=== PATIENT | female | born 1985 | race Caucasian/White ===

== ENCOUNTER 2022-04-16 22:42 | Inpatient (IN) | payer SELFPAY ==
[2022-04-16 22:51] VITALS: BP 133/77; PULSE 108; RESP 20; TEMP 37.2; O2SAT 100; BMI 28.2
--- NOTE | 2022-04-16 23:35 | W.ED.EXTPRO ---
HPI - Extremity Problem General: Chief complaint: ER Hold Stated complaint: Rt Arm Swollen Time Seen by Provider: 04/16/22 23:35 History of Present Illness: Ms. Erickson is a 36-year-old lady without significant past medical history presents to the emergency department due to concern over increased arm swelling. She reports she was working on a roof last week and may have cyst and a right elbow laceration. She was doing well for few days and then had increased pain and redness that has spread. She was seen 2 days ago at outside ER and given a dose of Rocephin as well as prescribed Bactrim in the outpatient setting. Additionally she had Tdap updated. Despite this symptoms have continued to worsen. She has moderate to severe intensity pain which is throbbing in nature and tracks distally. Symptoms are worse with movement and palpation. She has noted subjective chills and nausea with vomiting though she thinks that this may be secondary to pain medication. Denies frequent episode of skin infections. No other specific changes in health, exacerbating, or alleviating factors identified. Onset (ago): day(s) Location: right Quality: aching Radiation: proximal and distal Exacerbating factors: range of motion and palpation Associated symptoms: Reports other Review of Systems General: Reports: 10 or more systems reviewed and unremarkable except in HPI and below PFSH ED PFSH: Medical History No significant past medical history Surgical History H/O: hysterectomy Family History Other No significant family history Social History Smoking and tobacco status: current some day smoker cigarettes Alcohol intake: never Lives independently: Yes Household members: spouse Marital status: Physical Exam Const: COMMON NORMALS: alert GENERAL APPEARANCE: cooperative, well developed and in distress (uncomfortable appearing due to pain) HENMT: COMMON NORMALS: normocephalic and atraumatic HEAD & SCALP: normocephalic and atraumatic THROAT: posterior oropharynx normal Eye: COMMON NORMALS: conjunctivae normal CONJUNCTIVA: Yes conjunctivae normal SCLERA: sclerae normal Neck/C-Spine: COMMON NORMALS: supple GENERAL: Yes trachea midline Resp: COMMON NORMALS: normal respiratory effort and clear to auscultation bilaterally EFFORT & INSPECTION: Yes able to speak in complete sentences AUSCULTATION: clear to auscultation bilaterally Cardio: COMMON NORMALS: regular rate and regular rhythm RATE: regular rate RHYTHM: regular rhythm GI: COMMON NORMALS: Soft to palpation PALPATION: Yes Soft to palpation and No Tenderness to palpation present (GI) PERCUSSION: normal to percussion Extremity: NARRATIVE EXTREMITY EXAM: R arm circumferential swelling proximal and distal to elbow. TTP. Warmth. Mild erythema. No vesicles or rash. Distal CMS intact. Worse TTP to olecranon region. Neuro: COMMON NORMALS: moves all extremities SENSORIUM/ORIENTATION: Yes alert and No Orientation impaired Psych: COMMON NORMALS: mental status grossly normal and Normal thought process present THOUGHT PROCESS: Normal thought process present Procedures Abscess I/D Site: upper extremity Side (if applicable): right Local Anesthetic: lidocaine 2% and with epi Amount of anesthesia used (mL): 5 Technique: incised with #11 blade Amount of fluid expressed (mL): 10 Irrigation: Yes Packing used?: plain Complications: pain Course ED course: - Patient was seen and evaluated by me at bedside - Patient placed on cardiac monitors, IV access obtained - Initial evaluation notable for exam above - Labs and xrays personally interpreted by me - Fluids, analgesia, and antiemetic given. abx ordered - Labs notable for leukocytosis, normal hemoglobin. Mild dehydration. Transaminitis of uncertain etiology. Elevated - Imaging notable for no acute bony abnormality, extensive posterior right elbow swelling. Soft tissue ultrasound notable for fluid collection within the posterior soft tissues of the right elbow. Report states that above elbow however images demonstrate that this is in proximity to radius. Area reidentified on POCUS and appears liquid. Drained as noted in procedures - Upon serial reexamination after treatment the patient was improved - Based on patient history, evaluation, and testing as interpreted the most likely cause of the patient's condition is cellulitis from wound abscess formation that has failed outpatient therapy - The results of ED evaluation were discussed with the patient including plan for admission due to requirement for level of care not available if discharged to prevent significant worsening/deterioration. - Admitting service was contacted and Dr Halytskyy with the hospitalist service agreed to admit the patient - Patient was admitted without further deterioration or significant events. Note: Click bubbles or prepopulated cummings in note writing are used for assistance with data collection and billing and are inherently more limited than narrative and other text portions of this note. Please use narrative for additional clinical history and defer to narrative/free test for any case of contradictory information. If information appears in only free text or click bubble it should be considered present or absent as reported. Please contact note real estate underwriter for clarifications of clinical information or contradictory information. MDM is a brief summary, contradictory or erroneous seeming information should be clarified and full note should be reviewed. Vital Signs: Vital signs: Vital Signs Temperature 98.4 F 04/18/22 11:50 Pulse Rate 97 04/18/22 11:50 Respiratory Rate 18 04/18/22 11:50 Blood Pressure 95/55 04/18/22 11:50 Pulse Oximetry 99 04/18/22 11:50 Oxygen Delivery Me thod 04/18/22 04:00 MDM - Extremity (Nontraumatic) Medical Decision Making 36-year-old lady presenting with worsening arm pain and swelling after fall with injury. Previously she was started on outpatient antibiotics but continues to worsen. Labs notable for leukocytosis. Initial tachycardia noted. Abscess identified and drained with packing placed. Admitted for IV antibiotics. Medical Records I reviewed the patient's medical records. Lab Data I reviewed the patient's lab results. : 04/17/22 08:52 04/17/22 08:52 Radiology Impressions Elbow X-Ray 04/16/22 23:45 IMPRESSION: Extensive posterior right elbow soft tissue swelling. Differential diagnosis includes cellulitis versus possible olecranon bursitis. Soft Tissue Ultrasound 04/17/22 23:46 IMPRESSION: Approximately 1.1 x 2.4 x 1.6 cm heterogeneous fluid collection or abscess within the posterior soft tissues above the right elbow. Venous Duplex 04/17/22 23:46 IMPRESSION: No evidence of right upper extremity deep vein thrombosis. Laboratory Results WBC 12.6 10^3/uL (4.0-10.0) H 04/17/22 00:08 RBC 3.94 10^6/uL (4.1-5.3) L 04/17/22 00:08 Hgb 11.8 g/dL (11.5-15.3) 04/17/22 00:08 Hct 35.6 % (37.0-47.0) L 04/17/22 00:08 MCV 90.4 fl (81-99) 04/17/22 00:08 MCH 29.9 pg (28.0-34.0) 04/17/22 00:08 MCHC 33.1 g/dL (30.0-36.0) 04/17/22 00:08 RDW 12.8 % (12.1-15.1) 04/17/22 00:08 Plt Count 266 10^3/cmm (130-400) 04/17/22 00:08 MPV 9.8 fL (7.4-10.4) 04/17/22 00:08 Neut % (Auto) 86.5 % 04/17/22 00:08 Lymph % (Auto) 6.4 % 04/17/22 00:08 Amador % (Auto) 5.8 % 04/17/22 00:08 Eos % (Auto) 0.3 % 04/17/22 00:08 Baso % (Auto) 0.2 % 04/17/22 00:08 Neut # (Auto) 10.86 10^3/uL (1.8-7.7) H 04/17/22 00:08 Lymph # (Auto) 0.8 10^3/uL (0.8-4.8) 04/17/22 00:08 Amador # (Auto) 0.7 10^3/uL (0.2-0.9) 04/17/22 00:08 Eos # (Auto) 0.0 10^3/uL (0.0-0.8) 04/17/22 00:08 Baso # (Auto) 0.0 10^3/uL (0.0-0.1) 04/17/22 00:08 Nucleated RBC % (auto) 0 % 04/17/22 00:08 Nucleated RBCs # 0.0 /100WBC 04/17/22 00:08 ESR 29 mm/hr (0-15) H 04/17/22 00:08 Sodium 135 mmol/L (136-145) L 04/17/22 00:08 Potassium 3.8 mmol/L (3.5-5.1) 04/17/22 00:08 Chloride 97 mmol/L (98-107) L 04/17/22 00:08 Carbon Dioxide 28 mmol/L (22-29) 04/17/22 00:08 Anion Gap 13.8 (5-19) 04/17/22 00:08 BUN 7 mg/dL (6-20) 04/17/22 00:08 Creatinine 0.7 mg/dL (0.5-0.9) 04/17/22 00:08 GFR Calculation 93.6 mL/min (90-130) 04/17/22 00:08 Glucose 130 mg/dL (65-115) H 04/17/22 00:08 Calculated Osmolality 280 mOsm/kg (285-295) L 04/17/22 00:08 Lactate 1.8 mmol/L (0.5-2.2) 04/17/22 00:08 Calcium 9.1 mg/dL (8.5-10.5) 04/17/22 00:08 Total Bilirubin 0.3 mg/dL (0.15-1.2) 04/17/22 00:08 AST 47 U/L (0-32) H 04/17/22 00:08 ALT 46 U/L (0-33) H 04/17/22 00:08 Alkaline Phosphatase 153 IU/L (35-105) H 04/17/22 00:08 C-Reactive Protein 323.2 mg/L (0.0-4.9) H 04/17/22 00:08 Total Protein 6.7 g/dL (6.6-8.7) 04/17/22 00:08 Albumin 3.9 g/dL (3.5-5.2) 04/17/22 00:08 Globulin 2.8 g/dL (1.3-4.6) 04/17/22 00:08 Discharge Plan Discharge Patient Disposition: Admitted As Inpatient Admit Provider: Anthony Quiroz Clinical Impression: Cellulitis, Abscess, Sepsis Condition: Stable Coding Level of Care Code ED Aerospace Physiological Technician for [facility]
--- NOTE | 2022-04-16 23:45 | XRR_ITS ---
PROCEDURE INFORMATION: Exam: XR Right Elbow Exam date and time: 04/17/2022 12:15 AM Age: 36 years old Clinical indication: Pain; Right; Patient HX: Diffuse swelling and redness to RT elbow x 1 week. ; Additional info: Pain, swelling TECHNIQUE: Imaging protocol: Radiologic exam of the Right elbow. Views: 3 or more views. COMPARISON: No relevant prior studies available. FINDINGS: Bones/joints: No acute osseous abnormality. No dislocation. Soft tissues: Extensive posterior right elbow soft tissue swelling. XR/XR elbow RT min 3V* [id number] IMPRESSION: Extensive posterior right elbow soft tissue swelling. Differential diagnosis includes cellulitis versus possible olecranon bursitis.
[2022-04-16] MEDS: sodium chloride 0.9% 1,000 ML 999 ML IV (23:58)
[2022-04-16] MEDS: ondansetron 2 mg/ML SDV 2 mL 4 MG IVP (23:58)
[2022-04-16 23:59] VITALS: RESP 15
[2022-04-16] MEDS: morphine 4 mg/mL SDV 1 mL IVP (23:59)
[2022-04-17] VITALS (12 sets, daily range): BP systolic 81–103; BP diastolic 47–71; PULSE 82–99; RESP 12–24; TEMP 36.4–37.4; O2SAT 91–100
[2022-04-17 00:23] LABS: Basophils % 0.2 %; Eosinophils % 0.3 %; Hematocrit 35.6 % (37.0-47.0); Hemoglobin 11.8 g/dL (11.5-15.3); Lymphocytes # 0.8 10^3/uL (0.8-4.8); Lymphocytes % 6.4 %; Mean Corpuscular HGB Conc 33.1 g/dL (30.0-36.0); Mean Corpuscular Hemoglobin 29.9 pg (28.0-34.0); Mean Corpuscular Volume 90.4 fl (81-99); Mean Platelet Volume 9.8 fL (7.4-10.4); Monocytes # 0.7 10^3/uL (0.2-0.9); Monocytes % 5.8 %; Neutrophils # 10.86 10^3/uL (1.8-7.7); Neutrophils % 86.5 %; Nucleated Red Blood Cells % 0 %; Platelet Count 266 10^3/cmm (130-400); Red Blood Count 3.94 10^6/uL (4.1-5.3); Red Cell Distribution Width 12.8 % (12.1-15.1); White Blood Count 12.6 10^3/uL (4.0-10.0)
[2022-04-17 00:31] LABS: Erythrocyte Sedimentation Rate 29 mm/hr (0-15)
[2022-04-17 00:33] LABS: Lactate (Lactic Acid level) 1.8 mmol/L (0.5-2.2)
[2022-04-17 00:34] LABS: Alanine Aminotransferase 46 U/L (0-33); Albumin Level 3.9 g/dL (3.5-5.2); Alkaline Phosphatase 153 IU/L (35-105); Anion Gap 13.8 (5-19); Aspartate Amino Transferase 47 U/L (0-32); Blood Urea Nitrogen 7 mg/dL (6-20); C Reactive Protein 323.2 mg/L (0.0-4.9); Calcium 9.1 mg/dL (8.5-10.5); Carbon Dioxide 28 mmol/L (22-29); Chloride 97 mmol/L (98-107); Globulin 2.8 g/dL (1.3-4.6); Glomerular Filtration Rate 93.6 mL/min (90-130); Glucose 130 mg/dL (65-115); Osmolality Calculated 280 mOsm/kg (285-295); Potassium 3.8 mmol/L (3.5-5.1); Sodium 135 mmol/L (136-145); Total Bilirubin 0.3 mg/dL (0.15-1.2); Total Protein 6.7 g/dL (6.6-8.7)
[2022-04-17] MEDS: morphine 4 mg/mL SDV 1 mL IVP (02:56)
[2022-04-17] MEDS: fentaNYL 50 mcg/mL INJ 2mL IVP (03:54)
--- NOTE | 2022-04-17 05:17 | PM.HP ---
Providers/Chief Complaint Admitting Physician: Anthony Quiroz Primary Care Provider: Sandrita Chen APN Chief Complaint: Rt Arm Swollen History of Present Illness Pleasant 36-year-old lady without significant past medical history, sustained an injury to the right arm/elbow, with laceration caused by a metal roof. With progressive redness, swelling, pain, on outpatient side received a Tdap booster, a dose of Rocephin, and was prescribed a course of Bactrim. Symptoms had not improved, however, and she presented here for evaluation. She is able to move her right forearm, hand, without sensory loss. He is having pain in the same compressional area of redness and swelling above and below the right elbow. In ER she is found to have leukocytosis 12.6, sinus tachycardia 97. Elbow x-ray showed extensive posterior right elbow soft tissue swelling with differential possible cellulitis or olecranon bursitis. Soft tissue ultrasound showed approximately 1.1 x 2.4 x 1.6 cm heterogenous fluid collection or abscess within posterior soft tissues above the right elbow. Due to possible sepsis blood cultures collected, she was started on ceftriaxone, vancomycin. She underwent I&D and packing with ultrasound guidance by ER physician at bedside after area identified on the ultrasound study (as per our discussion). Venous duplex was negative for DVT. Review of Systems Const: Denies: fever(s), chills, body aches or malaise Eyes: Denies: change in vision, eye discomfort or eye redness ENMT: Denies: throat pain, oral sores or ear or mastoid pain Card: Denies: chest pain, edema, pre-syncope or dyspnea on exertion Resp: Denies: dyspnea, productive cough, change in phlegm color or hemoptysis GI: Denies: abdominal pain, nausea, vomiting, diarrhea, constipation, hematochezia or melena : Denies: flank pain, urinary frequency or hematuria Musc: Reports: extremity pain, extremity swelling and limited range of motion; Denies: back pain Skin/Breast: Reports: rash and erythema; Denies: new lesions Neuro: Denies: headache(s), numbness in extremities, weakness in extremities, dizziness, confusion or seizure-like activity Endo: Denies: polyuria or polydipsia Kwesi/Lymph: Denies: easy bleeding or tender lymph nodes All/Imm: Denies: urticaria or tongue swelling Medications/Allergies Allergies Allergy/AdvReac Type Severity Reaction Status Date / Time No Known Allergies Allergy Verified 04/17/22 02:55 PFSH Acute PFSH: Medical History No significant past medical history Surgical History H/O: hysterectomy Family History Other No significant family history Social History Smoking and tobacco status: current some day smoker cigarettes Alcohol intake: never Substance/Drug Use: never Lives independently: Yes Household members: spouse Marital status: Vitals/I&O/Wt Last Vital Signs Temp 99.0 F 04/16/22 22:51 Pulse 97 04/17/22 03:10 Resp 24 H 04/17/22 03:54 BP 99/67 04/17/22 03:10 Pulse Ox 96 04/17/22 03:10 04/16/22 04/16/22 04/17/22 14:59 22:59 06:59 Intake Total 1500 / 1500 Balance 1500 / 1500 Weight last 48 hrs Weight 79.379 kg Physical Exam Const: COMMON NORMALS: alert GENERAL APPEARANCE: cooperative ORIENTATION/CONSCIOUSNESS: Yes awake HENMT: COMMON NORMALS: normocephalic, EAC's normal, Normal external nose present and moist oral mucous membranes HEAD & SCALP: normocephalic NOSE: Normal external nose present EXTERNAL AUDITORY CANAL: EAC's normal Neck/C-Spine: COMMON NORMALS: no meningeal signs Chest: CHEST: Yes Symmetrical chest wall rise Resp: COMMON NORMALS: clear to auscultation bilaterally AUSCULTATION: clear to auscultation bilaterally Cardio: COMMON NORMALS: regular rate, regular rhythm and No murmurs present (Cardio) RATE: regular rate RHYTHM: regular rhythm GI: COMMON NORMALS: Normal to inspection, nondistended, normoactive bowel sounds present, Soft to palpation and non-tender PALPATION: Yes Soft to palpation Extremity: COMMON NORMALS: no pedal edema OTHER: Swelling above and below right elbow, erythema, warmth. No difficulty moving her hand. No sensation loss. Neuro: COMMON NORMALS: moves all extremities SENSORIUM/ORIENTATION: Yes alert MENINGEAL SIGNS: Yes no meningeal signs Psych: COMMON NORMALS: mental status grossly normal Skin: RASHES: rashes noted (Above and below right elbow, redness, swelling, warmth) OTHER: Fresh dressing after I&D proximal posterior right forearm Data : 04/17/22 00:08 04/17/22 00:08 Micro: Microbiology 04/16/22 00:11 Blood Culture - Preliminary Blood SPECIMEN COLLECTED 04/16/22 00:09 Blood Culture - Preliminary Blood SPECIMEN COLLECTED A&P Assessment and plan (1) Cellulitis and abscess of upper extremity: Status post I&D of abscess over right elbow identified on soft tissue ultrasound. Packing in place. With sepsis. Continue to biotics with vancomycin, ceftriaxone. Assess MRI for possibility of deeper infection. In case deeper infection, or not improving further after I&D and with IV antibiotics, orthopedics will be available for consult. Follow-up wound cultures, blood cultures. ESR 29, CRP 323.2. Status: Acute (2) Sepsis: With leukocytosis 12.6, sinus tachycardia 97. Sepsis without end organ dysfunction. Lactic acid is normal. Blood cultures collected, follow-up. Antibiotics as above. Status: Acute (3) Hyperglycemia: Without known history of diabetes. Glucose 130. Check A1c. Consistent carbohydrate diet. Status: Acute (4) Liver function study, abnormal: Noted liver primary abnormality of unknown chronicity. AST 47, ALT 46. Alk phos 153. No complaints of abdominal discomfort. Follow-up liver parameters, monitor for changes. Additional follow-up studies inpatient versus outpatient depending on trend or any new symptoms. Status: Acute Attestations Medical Necessity Statement*: Admission of over 2 midnights is anticipated for assessment of management of sepsis, cellulitis with abscess of right upper extremity not responsive to outpatient treatment. Coding Level of Care Code Acute Digital Performance Analyst for [facility] Diagnoses Cellulitis and abscess of upper extremity L03.119; L02.419 Sepsis A41.9 Liver function study, abnormal R94.5 Hyperglycemia R73.9
--- NOTE | 2022-04-17 05:33 | PC.PHAR ---
Vancomycin is dosed at 1500mg IVPB every 12 hours to produce a predicted trough level of 14.84 (population based pharmacokinetic analysis). A trough level has been ordered from the lab to be obtained before the fourth dose to confirm and adjust if needed.
[2022-04-17] MEDS: acetaminophen 325 mg Tablet 650 MG PO ×2 (05:52→14:27)
--- NOTE | 2022-04-17 05:56 | PC.NURSE ---
Patient is asking for something other than Tylenol for pain. They gave her Morphine and Fentanyl in the ED and she is asking for one of them. She said they just cut open my arm. I need something other than Tylenol. Her blood pressure is 87/41. She is also refusing Heparin. She said I'll take my chances. Dr. Quiroz notified.
[2022-04-17] MEDS: sodium chloride 0.9% 1,000 ML 999 ML IV (06:21)
[2022-04-17] MEDS: morphine 4 mg/mL SDV 1 mL 1 MG IVP (06:22)
--- NOTE | 2022-04-17 07:29 | PC.NURSE ---
Bedside report received from DAYRON Hunter.
[2022-04-17 09:22] LABS: Basophils % 0.2 %; Eosinophils # 0.1 10^3/uL (0.0-0.8); Eosinophils % 0.9 %; Hematocrit 30.1 % (37.0-47.0); Hemoglobin 9.8 g/dL (11.5-15.3); Lymphocytes % 12.2 %; Mean Corpuscular HGB Conc 32.6 g/dL (30.0-36.0); Mean Corpuscular Hemoglobin 29.8 pg (28.0-34.0); Mean Corpuscular Volume 91.5 fl (81-99); Mean Platelet Volume 9.8 fL (7.4-10.4); Monocytes # 0.5 10^3/uL (0.2-0.9); Monocytes % 6.3 %; Neutrophils # 6.42 10^3/uL (1.8-7.7); Neutrophils % 79.3 %; Nucleated Red Blood Cells % 0 %; Platelet Count 219 10^3/cmm (130-400); Red Blood Count 3.29 10^6/uL (4.1-5.3); White Blood Count 8.1 10^3/uL (4.0-10.0)
[2022-04-17 09:28] LABS: Estmated Average Glucose 97
--- NOTE | 2022-04-17 09:34 | PC.NURSE ---
Dr. Solis notified of / blood pressure post 1L bolus and orders to cancel ICU transfer.
[2022-04-17 09:47] LABS: Alanine Aminotransferase 36 U/L (0-33); Albumin Level 2.9 g/dL (3.5-5.2); Alkaline Phosphatase 135 IU/L (35-105); Anion Gap 14.5 (5-19); Aspartate Amino Transferase 30 U/L (0-32); Blood Urea Nitrogen 5 mg/dL (6-20); Calcium 7.7 mg/dL (8.5-10.5); Carbon Dioxide 23 mmol/L (22-29); Chloride 101 mmol/L (98-107); Globulin 2.5 g/dL (1.3-4.6); Glomerular Filtration Rate 111.9 mL/min (90-130); Glucose 94 mg/dL (65-115); Osmolality Calculated 277 mOsm/kg (285-295); Potassium 3.5 mmol/L (3.5-5.1); Sodium 135 mmol/L (136-145); Total Bilirubin 0.3 mg/dL (0.15-1.2); Total Protein 5.4 g/dL (6.6-8.7)
[2022-04-17] MEDS: vancomycin 1,500 MG/300 ML PIGGYBACK 150 MG IV (14:05)
[2022-04-17] MEDS: piperacillin-tazobactam 3.375 GM in sodium chloride 0.9% (plus) 50 ML IV ×2 (16:33→23:43)
[2022-04-17] MEDS: ketorolac 10 mg Tablet PO (16:33)
--- NOTE | 2022-04-17 23:46 | USR_ITS ---
PROCEDURE INFORMATION: Exam: US Duplex Right Upper Extremity Veins, Limited Exam date and time: 04/17/2022 1:12 AM Age: 36 years old Clinical indication: Pain and injury or trauma; Other: Cut right elbow against something in the barn 6 days ago. Puncture wound; Upper extremity, lower arm or forearm level; Other superficial vein; Arm, upper; Injury date: 11 April 2022; Additional info: Swelling, pain TECHNIQUE: Imaging protocol: Real-time Duplex ultrasound of the Right Upper Extremity with 2-D castrejon scale, color Doppler flow and spectral waveform analysis with image documentation. Limited exam focused on the right upper extremity veins. COMPARISON: CR (UP EXM, ) 04/17/2022 12:15 AM FINDINGS: Right deep veins: Unremarkable. Axillary and brachial veins are patent throughout without thrombus. Normal Doppler waveforms. Normal compressibility and/or augmentation response. Visualized internal jugular and subclavian veins are patent. Right superficial veins: Unremarkable. Visualized cephalic and basilic veins are patent without thrombus. Soft tissues: No significant soft tissue abnormality demonstrated. US/[place] [id number] IMPRESSION: No evidence of right upper extremity deep vein thrombosis.
--- NOTE | 2022-04-17 23:46 | USR_ITS ---
PROCEDURE INFORMATION: Exam: US Unlisted Ultrasound Procedure, right elbow soft tissue ultrasound Exam date and time: 04/17/2022 1:36 AM Age: 36 years old Clinical indication: Injury or trauma; Other: Puncture wound to the right elbow against something in the barn 6 days ago. Now rue is swollen, infected, with pus exuding from pustule on right elbow. Injury date: 11 April 2022; Additional info: Posterior elbow, swelling, pain, eval abscess TECHNIQUE: Imaging protocol: Unlisted ultrasound procedure (eg, diagnostic, interventional). Right elbow soft tissue ultrasound COMPARISON: No relevant prior studies available. FINDINGS: Procedural imaging: The right elbow was scanned by ultrasound with special attention directed to the area of clinical concern posteriorly above the right elbow. There is an approximately 1.1 x 2.4 x 1.6 cm heterogeneous fluid collection or abscess within the posterior soft tissues above the right elbow. US/US soft tissue/extremity [id number] IMPRESSION: Approximately 1.1 x 2.4 x 1.6 cm heterogeneous fluid collection or abscess within the posterior soft tissues above the right elbow.
[2022-04-18] VITALS: BP 98/66; PULSE 85; RESP 13; TEMP 36.8; O2SAT 95
[2022-04-18] MEDS: vancomycin 1,500 MG/300 ML PIGGYBACK 150 MG IV (02:45)
[2022-04-18] MEDS: acetaminophen 325 mg Tablet 650 MG PO (02:45)
[2022-04-18 04:00] VITALS: BP 100/64; PULSE 78; RESP 14; TEMP 36.7; O2SAT 94
[2022-04-18] MEDS: piperacillin-tazobactam 3.375 GM in sodium chloride 0.9% (plus) 50 ML IV (07:54)
[2022-04-18 08:00] VITALS: BP 94/60; PULSE 80; RESP 16; TEMP 36.6; O2SAT 96
--- NOTE | 2022-04-18 09:00 | PC.NURSE ---
Bedside report received from DAYRON Hunter, this morning.
[2022-04-18] MEDS: ketorolac 10 mg Tablet PO (09:48)
[2022-04-18 11:50] VITALS: BP 95/55; PULSE 97; RESP 18; TEMP 36.9; O2SAT 99
--- NOTE | 2022-04-18 21:30 | P.DS_ITS ---
Discharge Providers Date of Admission: 04/17/22 04:25 Date of Discharge: April 19, 2022 Attending Provider at Admission: Anthony Quiroz Attending Provider at Discharge: Nathaniel Solis MD Primary Care Provider: Sandrita Chen APN Diagnoses at Discharge Discharge Diagnosis (1) Cellulitis and abscess of upper extremity: (2) Sepsis: (3) Hyperglycemia: (4) Liver function study, abnormal: Reason for Visit Reason for Visit: Rt Arm Swollen Hospital Course Hospital Course HPI: 36-year-old lady without significant past medical history, sustained an injury to the right arm/elbow, with laceration caused by a metal roof.? With progressive redness, swelling, pain, on outpatient side received a Tdap booster, a dose of Rocephin, and was prescribed a course of Bactrim.? Symptoms had not improved, however, and she presented here for evaluation.? She is able to move her right forearm, hand, without sensory loss.? He is having pain in the same compressional area of redness and swelling above and below the right elbow. In ER she is found to have leukocytosis 12.6, sinus tachycardia 97. Elbow x-ray showed extensive posterior right elbow soft tissue swelling with differential possible cellulitis or olecranon bursitis. Soft tissue ultrasound showed approximately 1.1 x 2.4 x 1.6 cm heterogenous fluid collection or abscess within posterior soft tissues above the right elbow. Due to possible sepsis blood cultures collected, she was started on ceftriaxone, vancomycin. She underwent I&D and packing with ultrasound guidance by ER physician at bedside after area identified on the ultrasound study (as per our discussion). Venous duplex was negative for DVT. Hospital Course she was admitted for the management of She was admitted for the management of sepsis 2/2 Cellulitis and abscess of rt upper extremity she was keep on van and zosyn, blood cultures were negative wound culture grew : wound culture grew Staph Au, she was scheduled for MRI of the rt upper extremity which she opted not to get it done.Wound care was done, on discharge she has been supplied with wound care supplies for wet to dry dressing, every other day, appointment has been made to follow at wound care clinic, she has been discharged on bactrim as well as Augmentin. Over all she has responded well to above medical mangement and is being discharged in stable condition to home. Physical Exam Const: COMMON NORMALS: patient oriented x3 HENMT: COMMON NORMALS: normocephalic and atraumatic HEAD & SCALP: normocephalic and atraumatic Chest: CHEST: Yes Symmetrical chest wall rise Resp: COMMON NORMALS: clear to auscultation bilaterally EFFORT & INSPECTION: Yes symmetric chest movement AUSCULTATION: clear to auscultation bilaterally Cardio: COMMON NORMALS: regular rate, regular rhythm, S1 normal heart sound present, S2 normal heart sound present, No gallops present (Cardio), No murmurs present (Cardio), No rub (Cardio) and Peripheral pulses 2+ throughout RATE: regular rate RHYTHM: regular rhythm HEART SOUNDS: S1 normal heart sound present and S2 normal heart sound present PERIPHERAL PULSES: Peripheral pulses 2+ throughout GI: COMMON NORMALS: Normal to inspection, nondistended, normoactive bowel sounds present, Soft to palpation, non-tender, No hepatosplenomegaly present and no masses AUSCULTATION: Yes normoactive bowel sounds PALPATION: Yes Soft to palpation and Yes No hepatosplenomegaly present RECTAL EXAM: deferred Extremity: COMMON NORMALS: no clubbing, cyanosis or edema and no pedal edema NARRATIVE EXTREMITY EXAM: Rt arm as well as elbow joint swelling and redness present. Neuro: COMMON NORMALS: patient oriented x3 Discharge Data Studies Completed and Pending Completed Studies During Hospitalization Category Date Time Status XR elbow RT min 3V* [id number] Stat Exams 04/16/22 23:45 [place] [id number] Urgent Ultrasound 04/17/22 23:46 Completed US soft tissue/extremity [id number] Stat Ultrasound 04/17/22 23:46 Completed Pending at discharge Category Date Time Status Abscess Culture and Gram Stain Stat Lab 04/17/22 03:57 Results Blood Culture Stat Lab 04/16/22 00:11 Results Radiology Impressions Elbow X-Ray 04/16/22 23:45 IMPRESSION: Extensive posterior right elbow soft tissue swelling. Differential diagnosis includes cellulitis versus possible olecranon bursitis. Soft Tissue Ultrasound 04/17/22 23:46 IMPRESSION: Approximately 1.1 x 2.4 x 1.6 cm heterogeneous fluid collection or abscess within the posterior soft tissues above the right elbow. Venous Duplex 04/17/22 23:46 IMPRESSION: No evidence of right upper extremity deep vein thrombosis. Laboratory Results WBC 8.1 10^3/uL (4.0-10.0) 04/17/22 08:52 RBC 3.29 10^6/uL (4.1-5.3) L 04/17/22 08:52 Hgb 9.8 g/dL (11.5-15.3) L 04/17/22 08:52 Hct 30.1 % (37.0-47.0) L 04/17/22 08:52 MCV 91.5 fl (81-99) 04/17/22 08:52 MCH 29.8 pg (28.0-34.0) 04/17/22 08:52 MCHC 32.6 g/dL (30.0-36.0) 04/17/22 08:52 RDW 13.0 % (12.1-15.1) 04/17/22 08:52 Plt Count 219 10^3/cmm (130-400) 04/17/22 08:52 MPV 9.8 fL (7.4-10.4) 04/17/22 08:52 Neut % (Auto) 79.3 % 04/17/22 08:52 Lymph % (Auto) 12.2 % 04/17/22 08:52 [place] % (Auto) 6.3 % 04/17/22 08:52 Eos % (Auto) 0.9 % 04/17/22 08:52 Baso % (Auto) 0.2 % 04/17/22 08:52 Neut # (Auto) 6.42 10^3/uL (1.8-7.7) 04/17/22 08:52 Lymph # (Auto) 1.0 10^3/uL (0.8-4.8) 04/17/22 08:52 [place] # (Auto) 0.5 10^3/uL (0.2-0.9) 04/17/22 08:52 Eos # (Auto) 0.1 10^3/uL (0.0-0.8) 04/17/22 08:52 Baso # (Auto) 0.0 10^3/uL (0.0-0.1) 04/17/22 08:52 Nucleated RBC % (auto) 0 % 04/17/22 08:52 Nucleated RBCs # 0.0 /100WBC 04/17/22 08:52 ESR 29 mm/hr (0-15) H 04/17/22 00:08 Sodium 135 mmol/L (136-145) L 04/17/22 08:52 Potassium 3.5 mmol/L (3.5-5.1) 04/17/22 08:52 Chloride 101 mmol/L (98-107) 04/17/22 08:52 Carbon Dioxide 23 mmol/L (22-29) 04/17/22 08:52 Anion Gap 14.5 (5-19) 04/17/22 08:52 BUN 5 mg/dL (6-20) L 04/17/22 08:52 Creatinine 0.6 mg/dL (0.5-0.9) 04/17/22 08:52 GFR Calculation 111.9 mL/min (90-130) 04/17/22 08:52 Glucose 94 mg/dL (65-115) 04/17/22 08:52 Estimat Average Glucose 97 04/17/22 08:52 Hemoglobin A1c 5.0 % (4.0-6.0) 04/17/22 08:52 Calculated Osmolality 277 mOsm/kg (285-295) L 04/17/22 08:52 Lactate 1.8 mmol/L (0.5-2.2) 04/17/22 00:08 Calcium 7.7 mg/dL (8.5-10.5) L 04/17/22 08:52 Total Bilirubin 0.3 mg/dL (0.15-1.2) 04/17/22 08:52 AST 30 U/L (0-32) 04/17/22 08:52 ALT 36 U/L (0-33) H 04/17/22 08:52 Alkaline Phosphatase 135 IU/L (35-105) H 04/17/22 08:52 C-Reactive Protein 323.2 mg/L (0.0-4.9) H 04/17/22 00:08 Total Protein 5.4 g/dL (6.6-8.7) L 04/17/22 08:52 Albumin 2.9 g/dL (3.5-5.2) L 04/17/22 08:52 Globulin 2.5 g/dL (1.3-4.6) 04/17/22 08:52 Vitals Last Vital Signs Temp 98.4 F 04/18/22 11:50 Pulse 97 04/18/22 11:50 Resp 18 04/18/22 11:50 BP 95/55 04/18/22 11:50 Pulse Ox 99 04/18/22 11:50 Discharge Plan Discharge Patient Disposition: Home Condition: Stable Prescriptions: New Bactrim DS 800-160 mg tablet 1 tab PO BID 10 Days Qty: 20 0RF Augmentin 500-125 mg tablet 1 tab PO BID 10 Days Qty: 20 0RF Percocet 2.5-325 mg tablet 1 tab PO Q8H PRN (Reason: pain) 7 Days Qty: 21 0RF acetaminophen 325 mg Tablet 650 mg PO Q6H PRN (Reason: Mild/Mod Pain Or Temp >/= 101) 10 Days Qty: 20 0RF Diflucan 150 mg tablet 150 mg PO Q3D Qty: 2 0RF Rx Instructions: may repeat second dose 72 hrs after first dose if symptoms persist Discharge Orders: Discharge Order (Routine); Ordered 04/18/22 Ordered By: Nathaniel Solis Referrals: Wilson Walters MD [Physician] - 04/21/22 2:00 pm Chen,BIRGIT Remy [Primary Care Provider] - 1 week (Please keep previous appointment. ) [facility], [Staff Physician] - 1 week Patient Instructions: Opioid Safety Discharge Attestations Time Spent in Discharge Care*: less than 30 min Quality Metrics Clinical Quality Measures [ No reported AMI, CVA or VTE this stay] Coding Level of Care Code Acute Chg FW DC note Exam Detailed Diagnoses Cellulitis and abscess of upper extremity L03.119; L02.419 Sepsis A41.9 Hyperglycemia R73.9 Liver function study, abnormal R94.5
--- NOTE | 2022-04-21 12:05 | PM.MISC ---
Miscellaneous Note Purpose of Documentation: Wound culture positive for MRSA Note: Patient's wound culture reported to nurse as MRSA. Will ask the nurse to call the patient and asked to stop Augmentin, Diflucan, Bactrim. She will be started on linezolid 600 mg twice daily for next 10 days. Medication has been sent over to her pharmacy listed in the chart. Patient is due to see Dr. Walters today in the afternoon.
--- NOTE | 2022-04-21 12:12 | PC.SOCIAL ---
[facility] Lab calls with micro result of MRSA from elbow abcess. Notified Dr. Gutierrez as both Dr. Solis and Dr. Guevara out of office today. He orders to discontinue diflucan, bactrim, and augmentin. He orders zyvox 600mg BID for 7 days and escribed to [facility] in [place]. Called and updated patient of this information; she verbalized understanding. She states that she is concerned with a knot around her elbow, although drainage has slowed. Encouraged her to address concerns with Dr. Walters at her follow up at 1400 today. She states that she thought her appointment was tomorrow. She doesn't think she will be able to make appointment. Number for wound care provided to patient, who is going to call them.
== END 2022-04-18 12:10 | disposition home or self-care (01) | DRG 603 ==
LOC: ER 04-17 04:13 → MEDSURG 04-17 04:42
PROVIDERS: Admitting Provider Internal Medicine; Emergency Provider Emergency Medicine; PCP Nurse Practitioner Family; Visit Provider Internal Medicine
DX: L03.113 Cellulitis of right upper limb (principal); L02.413 Cutaneous abscess of right upper limb; F17.210 Nicotine dependence, cigarettes, uncomplicated; R73.9 Hyperglycemia, unspecified; R94.5 Abnormal results of liver function studies; B95.62 Methicillin resistant Staphylococcus aureus infection as the cause of diseases classified elsewhere
CPT/HCPCS: 10060; 36415; 73080; 76882; 80053; 83036; 83605; 85025; 85651; 86140; 87040; 87070; 87075; 87077; 87186; 87205; 93971; 96365; 96366; 96367; 96375; 96376; 99285; J0696; J2270; J2405; J2543; J3010; J3370; J7030; J7040